=== PATIENT | male | born 1945 | race Asian ===

== ENCOUNTER 2021-09-15 05:23 | Emergency (ER) | payer MEDICARE, BC, OTHER ==
[2021-09-15] MEDS ORDERED: Ketorolac Tromethamine 30 MG/ML VIAL ONE (05:43)
== END 2021-09-15 06:25 | disposition home or self-care (01) ==
LOC: CSHERS 05:23
DX: S86.011A Strain of right Achilles tendon, initial encounter (principal); V03.10XA Pedestrian on foot injured in collision with car, pick-up truck or van in traffic accident, initial encounter; I10 Essential (primary) hypertension; E11.9 Type 2 diabetes mellitus without complications; E78.5 Hyperlipidemia, unspecified
CPT/HCPCS: J1885